=== PATIENT | female | born 1950 | race Caucasian/White ===

== ENCOUNTER 2020-05-11 16:16 | Inpatient (IN) ==
[2020-05-11] MEDS ORDERED: PANTOPRAZOLE BOLUS/DRIP 1 EA IV STA (16:32)
[2020-05-11] MEDS ORDERED: ONDANSETRON INJ 2 MG/ML 2 ML VIAL IV STA (16:32)
--- NOTE | 2020-05-11 16:38 | Emergency Department Note ---
Impression & Plan Weakness, Esophageal varices, GI bleed, Black stool, Heme positive stool ED Provider Note NAME: EDGAR CEE AGE: 69 SEX: F : 1950 ARRIVES VIA: Walk-In INFORMANT: [Patient] ED PROVIDER(S): [Azar Caceres MD] CHIEF COMPLAINT: GI bleed HISTORY OF PRESENT ILLNESS: Patient is a 69-year-old female who presents to the ED with what she thinks is a GI bleed. She has had black stool. The patient was seen in this ED yesterday by me. She had had an episode of he matemesis. Her stool was negative for blood. Her hemoglobin was stable. Her case was discussed with GI and she was felt safe for discharge. She was told to return for any worsening symptoms or black stool. Patient states that she now has black stool. She feels a bit weaker than baseline. She is not short of breath. She has some mild epigastric abdominal pain. No vomiting. No further hematemesis. She has not had fever, chills or cough. The patient does have a history of esophageal varices, she had a banding procedure done about a month ago. REVIEW OF SYSTEMS: See HPI for pertinent positives and negatives. A total of ten systems were reviewed and were otherwise negative. PMHx/PSHx: See Below SOCIAL HISTORY: See Below. PHYSICAL EXAM: GENERAL: Patient is in no acute distress. HEENT: No acute trauma, normocephalic atraumatic, mucous membranes moist, no nasal congestion, very mild scleral icterus. NECK: No stridor, no adenopathy, no meningismus, trachea is midline. LUNGS: Clear to auscultation bilaterally, no wheeze, no rhonchi, breath sounds equal. HEART: 2/6 systolic murmur, regular rate and rhythm. ABDOMEN: Soft, very mildly tender in the epigastrium and right upper quadrant, bowel sounds positive, no hernias, no peritonitis. EXTREMITIES: No cyanosis or edema, full range of motion of all the joints without pain or difficulty, no signs for acute trauma. NEUROLOGIC: Oriented x 3, no acute motor or sensory deficits, no focal weakness. SKIN: No rash, mild jaundice, no diaphoresis. Rectal: Black stool, heme positive. DIFFERENTIAL DIAGNOSIS: Diverticulosis, AVM, coagulopathy, colitis, inflammatory bowel disease, malignancy, Janna-Newman tear, esophagitis, peptic ulcer disease, variceal bleed, gastritis, epistaxis, fissure, hemorrhoids, as well as other pathologies. EMERGENCY DEPARTMENT COURSE/PROCEDURES: ECG: Indication was GI bleeding. The ECG shows a normal sinus rhythm with a rate of 77. The QTc was 457. There was no ST elevation, no PVCs. Continuous Cardiac Monitoring: An order was placed for continuous cardiac monitoring. The monitor shows a rate of 80 with normal sinus rhythm. MEDICAL DECISION MAKING: White count is slightly low. Platelet count is low. The low platelet count is likely secondary to her liver disease. Hemoglobin was down about 1.5 points compared to yesterday. The value today was 10.7. There was no coagulopathy. No significant electrolyte abnormality or kidney failure. Bilirubin was slightly elevated at 2.3, likely consistent with her liver disease. Pancreatic testing was unremarkable. ECG showed a normal sinus rhythm, no acute ischemia. Cardiac enzyme testing x1 was not consistent with acute cardiac injury. Rectal exam showed black stool which was heme positive. The patient presents with black stool. She was seen here yesterday for some hematemesis. Things progressed today to the point where she is having black, heme positive stool. Hemoglobin has dropped 1.5 points. I discussed the case with GI, hospitalization is warranted. She will likely undergo endoscopy tomorrow. The patient is aware of her findings, case management has been involved. I did speak with the on-call hospitalist. At this point, an emergent blood transfusion is not necessary. The patient was given IV saline, 500 cc. She was given a Protonix bolus IV and then was placed on a Protonix drip. She received IV Zofran for nausea. Past Med/Surg History Medical History (Updated 05/11/20 @ 16:48 by Azar Caceres MD) Cardiac murmur Diabetes mellitus, type 2 Esophageal varices banded before Fatty liver History of kidney stones Nausea and vomiting after administration of anesthetic agent severe nausea/vomiting with last EGD 03/11/2020 Osteoarthritis Surgical History History of appendectomy History of cholecystectomy History of colonoscopy with polypectomy History of dilatation and curettage History of esophagogastroduodenoscopy (EGD) last 03/11/2020 and 12/15/19 [facility] History of hysterectomy Family History Father No family history of adverse response to anesthesia Grandmother (Paternal) No family history of adverse response to anesthesia Family/Other No family history of adverse response to anesthesia cousins Other Family history of diabetes mellitus Social History Smoking Status: Never smoker Second Hand Exposure: Yes (parents smoked); Hx Alcohol Use: No Hx Substance Use: No Preferred Language: Venezuelan Communication Ability: Effective Training Systems Officer Required: No Beliefs That Will Affect Care: None Current Living Situation: Spouse Feels Safe at Home: Yes Assistive Devices: Glasses Allergies Allergies Allergy/AdvReac Type Severity Reaction Status Date / Time metformin Allergy Mild Nausea Verified 05/11/20 17:08 pollen extracts Allergy Mild Sneezing Verified 05/11/20 17:08 Home Meds Home Medications Medication Instructions Recorded Confirmed omeprazole 20 mg PO BID 12/12/19 05/11/20 propranolol 10 mg PO BID 12/12/19 05/11/20 Ozempic 1 mg SUBCUT WK 03/04/20 05/11/20 ondansetron HCl [Zofran] 4 mg PO Q6H PRN 05/11/20 05/11/20 Results & Data (ED) Vital Signs Vital Signs - 24 hr 05/11/20 16:21 05/11/20 18:07 Temperature 36.5 C Temperature Source Oral Pulse Rate 79 Pulse Rate [Apical] 75 Pulse Rhythm Regular Respiratory Rate 18 18 Respiratory Effort / Characteristics Non-Labored Respiratory Depth Normal Respiratory Pattern Regular Blood Pressure 118/69 Blood Pressure [Right Arm] 136/72 Blood Pressure Mean 85 Blood Pressure Mean [Right Arm] 93 Blood Pressure Position Sitting Pulse Oximetry 98 98 Oxygen Delivery Method Room Air Room Air Sepsis Recent Fever Within 48 Hours No Sepsis New/Unexplained Change in Mental Status No Sepsis Action Taken by Nursing No Action Required Home Medications Current Medication List: was personally reviewed by me Laboratory Data Attestation: I reviewed the patient's lab results. Result diagrams: 05/11/20 16:52 05/11/20 16:52 Lab Results 05/11/20 05/11/20 05/11/20 Range/Units 16:52 16:52 16:52 WBC 4.70 L (4.8-10.8) K/uL RBC 3.48 L (4.2-5.4) M/uL Hgb 10.7 L (12.0-16.0) g/dL Hct 32.2 L (37-47) % MCV 92.5 (80-100) fL MCH 30.7 (25-34) pg MCHC 33.2 (32-36) g/dL RDW Std Deviation 51.7 H (36.4-46.3) fL RDW Coeff of Coleen 15.4 H (11.5-14.5) % Plt Count 79 L (130-400) K/uL MPV 9.9 (7.4-10.4) fL Immature Gran % (Auto) 0.2 % Neut % (Auto) 52.8 % Lymph % (Auto) 38.7 % Calloway % (Auto) 4.5 % Eos % (Auto) 3.4 % Baso % (Auto) 0.4 % Neut # (Auto) 2.48 (1.4-6.5) K/uL Lymph # (Auto) 1.82 (1.2-3.4) K/uL Calloway # (Auto) 0.21 (0.11-0.59) K/uL Eos # (Auto) 0.16 (0-0.5) K/uL Baso # (Auto) 0.02 (0-0.2) K/uL Immature Gran # (Auto) 0.01 (0.00-0.02) K/uL Platelet Estimate Decreased L (Normal) PT 11.4 (9.0-12.0) Seconds INR 1.1 (0.9-1.1) APTT 23.4 (21.0-31.0) Seconds PTT Ratio 0.8 Sodium (136-145) mmol/L Potassium (3.5-5.1) mmol/L Chloride (98-107) mmol/L Carbon Dioxide (21-32) mmol/L Anion Gap (3-11) BUN (7-18) mg/dl Creatinine (0.6-1.2) mg/dl Est Cr Clr Drug Dosing ml/min Est GFR ( Amer) Est GFR (Non-Af Amer) BUN/Creatinine Ratio (10-20) Glucose (70-99) mg/dl Calcium (8.5-10.1) mg/dl Total Bilirubin (0.2-1) mg/dl AST (15-37) U/L ALT (12-78) U/L Alkaline Phosphatase (45-117) U/L Troponin I (0-0.045) ng/ml Total Protein (6.4-8.2) gm/dl Albumin (3.4-5.0) gm/dl Globulin (2.5-4.0) gm/dl Albumin/Globulin Ratio (0.9-2) Lipase (73-393) U/L Blood Type A Positive Antibody Screen NEGATIVE 05/11/20 Range/Units 16:52 WBC (4.8-10.8) K/uL RBC (4.2-5.4) M/uL Hgb (12.0-16.0) g/dL Hct (37-47) % MCV (80-100) fL MCH (25-34) pg MCHC (32-36) g/dL RDW Std Deviation (36.4-46.3) fL RDW Coeff of Coleen (11.5-14.5) % Plt Count (130-400) K/uL MPV (7.4-10.4) fL Immature Gran % (Auto) % Neut % (Auto) % Lymph % (Auto) % Calloway % (Auto) % Eos % (Auto) % Baso % (Auto) % Neut # (Auto) (1.4-6.5) K/uL Lymph # (Auto) (1.2-3.4) K/uL Calloway # (Auto) (0.11-0.59) K/uL Eos # (Auto) (0-0.5) K/uL Baso # (Auto) (0-0.2) K/uL Immature Gran # (Auto) (0.00-0.02) K/uL Platelet Estimate (Normal) PT (9.0-12.0) Seconds INR (0.9-1.1) APTT (21.0-31.0) Seconds PTT Ratio Sodium 141 (136-145) mmol/L Potassium 3.7 (3.5-5.1) mmol/L Chloride 113 H (98-107) mmol/L Carbon Dioxide 23 (21-32) mmol/L Anion Gap 5.0 (3-11) BUN 20 H (7-18) mg/dl Creatinine 0.85 (0.6-1.2) mg/dl Est Cr Clr Drug Dosing 56.7 ml/min Est GFR ( Amer) 81.6 Est GFR (Non-Af Amer) 70.4 BUN/Creatinine Ratio 23.7 H (10-20) Glucose 118 H (70-99) mg/dl Calcium 8.6 (8.5-10.1) mg/dl Total Bilirubin 2.3 H (0.2-1) mg/dl AST 28 (15-37) U/L ALT 34 (12-78) U/L Alkaline Phosphatase 100 (45-117) U/L Troponin I < 0.015 (0-0.045) ng/ml Total Protein 7.1 (6.4-8.2) gm/dl Albumin 3.3 L (3.4-5.0) gm/dl Globulin 3.8 (2.5-4.0) gm/dl Albumin/Globulin Ratio 0.9 (0.9-2) Lipase 69 L (73-393) U/L Blood Type Antibody Screen Administered Medications Pantoprazole Sodium 40 mg/ (Dextrose) 100 mls @ 20 mls/hr IV Q5H JEN Stop: 06/10/20 16:44 Last Admin: 05/11/20 17:22 Dose: 8 mg/hr, 20 mls/hr Documented by: [id number] Discontinued Medications Sodium Chloride (Nss) 500 mls @ 999 mls/hr IV .Q31M JEN Stop: 05/11/20 17:15 Last Infusion: 05/11/20 18:09 Dose: 0 mls/hr Documented by: [id number] Admin: 05/11/20 17:07 Dose: 999 mls/hr Documented by: [id number] Pantoprazole Sodium (Protonix Bolus/Drip) 0 mls @ 1 mls/hr IV ONE STA Stop: 05/11/20 16:33 Last Admin: 05/11/20 17:07 Dose: 1 mls/hr Documented by: [id number] Pantoprazole Sodium 80 mg/ (Dextrose) 120 mls @ 480 mls/hr IV ONE ONE Stop: 05/11/20 16:59 Last Infusion: 05/11/20 17:22 Dose: 0 mls/hr Documented by: [id number] Admin: 05/11/20 17:07 Dose: 480 mls/hr Documented by: [id number] Ondansetron HCl (Ondansetron Inj 2 Mg/Ml 2 Ml Vial) 4 mg IV ONE STA Stop: 05/11/20 16:33 Last Admin: 05/11/20 17:07 Dose: 4 mg Documented by: [id number] Discharge Plan Visit Data Chief Complaint: GI Bleed Stated Complaint: spit up black blood, here last night ED Provider: Azar Caceres Discharge Problem: Weakness, Esophageal varices, GI bleed, Black stool, Heme positive stool Patient Disposition: Admitted As Inpatient Condition: Good Forms Stand Alone Forms: [facility] Prescriptions Prescriptions: No Action Ozempic 1 mg/dose (2 mg/1.5 mL) Pen Injector 1 mg SUBCUT WK RF: 0 propranolol 10 mg Tablet 10 mg PO BID RF: 0 omeprazole 20 mg Tablet,Delayed Release (Dr/Ec) 20 mg PO BID RF: 0 ondansetron HCl [Zofran] 4 mg tablet 4 mg PO Q6H PRN (Reason: Nausea And Vomiting) RF: 0 Referrals Referrals: Tori Browne DO [Primary Care Provider] - Discharge Problem: Esophageal varices Qualifiers: Esophageal varices type: secondary Esophageal varices bleeding: with bleeding Qualified Code(s): I85.11 - Secondary esophageal varices with bleeding GI bleed Qualifiers: GI bleed type/associated pathology: unspecified gastrointestinal hemorrhage type Qualified Code(s): K92.2 - Gastrointestinal hemorrhage, unspecified
[2020-05-11] MEDS ORDERED: PANTOprazole 80 MG in DEXTROSE 5% 100 ML IV ONE (16:45)
[2020-05-11] MEDS ORDERED: SODIUM CHLORIDE 0.9% 500 ML IV SCH (16:45)
[2020-05-11] MEDS ORDERED: PANTOprazole 80 MG in DEXTROSE 5% 100 ML IV SCH (16:45)
[2020-05-11 17:04] LABS: Hematocrit (blood only) 32.2 % (37-47); Hemoglobin 10.7 g/dL (12.0-16.0); Mean Corpuscular Hemoglobin 30.7 pg (25-34); Mean Corpuscular Hgb Conc 33.2 g/dL (32-36); Mean Corpuscular Volume 92.5 fL (80-100); RDW Coefficient of Variation 15.4 % (11.5-14.5); RDW Standard Deviation 51.7 fL (36.4-46.3); Red Blood Count 3.48 M/uL (4.2-5.4)
[2020-05-11 17:17] LABS: INR 1.1 (0.9-1.1); Partial Thromboplastin Ratio 0.8; Partial Thromboplastin Time 23.4 Seconds (21.0-31.0); Prothrombin Time 11.4 Seconds (9.0-12.0)
[2020-05-11 17:22] LABS: Mean Platelet Volume 9.9 fL (7.4-10.4); Platelet Count 79 K/uL (130-400)
[2020-05-11] MEDS: PANTOprazole 40 MG in DEXTROSE 5% 100 ML IV SCH ×2 (17:22→20:38)
[2020-05-11 17:23] LABS: Alanine Aminotransferase 34 U/L (12-78); Albumin Level 3.3 gm/dl (3.4-5.0); Aspartate Aminotransferase 28 U/L (15-37); BUN Creatinine Ratio 23.7 (10-20); Basophils # (auto) 0.02 K/uL (0-0.2); Basophils % (auto) 0.4 %; Blood Urea Nitrogen 20 mg/dl (7-18); Calcium 8.6 mg/dl (8.5-10.1); Carbon Dioxide 23 mmol/L (21-32); Chloride 113 mmol/L (98-107); Creatinine Clr Calc Pharmacy 56.7 ml/min; Eosinophils # (auto) 0.16 K/uL (0-0.5); Eosinophils % (auto) 3.4 %; Est GFR (African American) 81.6; Est GFR (Non-African American) 70.4; Glucose 118 mg/dl (70-99); Immature Granulocytes # (auto) 0.01 K/uL (0.00-0.02); Immature Granulocytes % (auto) 0.2 %; Lipase 69 U/L (73-393); Lymphocytes # (auto) 1.82 K/uL (1.2-3.4); Lymphocytes % (auto) 38.7 %; Monocytes # (auto) 0.21 K/uL (0.11-0.59); Monocytes % (auto) 4.5 %; Neutrophils # (auto) 2.48 K/uL (1.4-6.5); Neutrophils % (auto) 52.8 %; Platelet Estimate Decreased (Normal); Potassium 3.7 mmol/L (3.5-5.1); Sodium 141 mmol/L (136-145)
[2020-05-11 17:28] LABS: Albumin Globulin Ratio 0.9 (0.9-2); Alkaline Phosphatase 100 U/L (45-117); Bilirubin,Total 2.3 mg/dl (0.2-1); Globulin 3.8 gm/dl (2.5-4.0); Total Protein 7.1 gm/dl (6.4-8.2); Troponin I < 0.015 ng/ml (0-0.045)
--- NOTE | 2020-05-11 18:35 | History & Physical Report ---
Date of Service May 11, 2020 Assessment & Plan (1) Esophageal varices: Recently banded, unclear if current UGI bleed from varices. Hgb relatively stable. Discussed with Dr Kimbrough - clear liquid diet ok, planning on EGD tomorrow afternoon, NPO from 10am. IV Pantoprazole bolus and drip, Octreotide, Ceftriaxone for antibiotic prophylaxis. Continue propranolol 10mg PO BID with hold parameters. Serial H&H. (2) Acute blood loss anemia: As above (3) Heme positive stool: As above (4) Hematemesis: Appears to have now stopped. Currently having more melena. Ondansetron PRN for nausea or vomiting. (5) Liver cirrhosis: (6) Thrombocytopenia: Suspect secondary to liver cirrhosis as above (7) Cardiac murmur: No prior echo on [employer] Previously known. No further workup needed at this stage. (8) Diabetes mellitus, type 2: HbA1C with AM labs. Hold Ozempic BSG ACHS. Insulin for correction only. (9) DVT prophylaxis: SCDs. Chemical prophylaxis contraindicated. Admission and Anticipated Discharge Date Admission Date: 05/11/2020 History of Present Illness Chief Complaint: Melena Primary Care Provider: DO Maddison Ramirezriki Benites is a 69 year old female with liver cirrhosis and history of esophageal varices who presents to the ER with melanic stools. She was seen in the ER the yesterday due to hematemesis. Hemoglobin was at baseline at that time and her care was discussed with Dr Kimbrough her stump blower and felt it was safe for her to be discharged at that time. Since yesterday she started having black stool and feels weaker than usual. No dizziness, lightheadedness, chest pain or shortness of breath. No further nausea, vomiting or hematemesis. She has a history of esophageal varices requiring banding the last time was performed at the beginning of April per patient recollection. In the ER she had heme positive stools, hemoglobin decreased from 12.1 yesterday to 10.7 today. She was started on pantoprazole IV bolus and drip and medicine consulted for the GI bleed, black stool, esophageal varices for admission. Allergies Allergy/AdvReac Type Severity Reaction Status Date / Time metformin Allergy Mild Nausea Verified 05/11/20 17:08 pollen extracts Allergy Mild Sneezing Verified 05/11/20 17:08 Home Medications Home Medications Medication Instructions Recorded Confirmed Type omeprazole 20 mg PO BID 12/12/19 05/11/20 History propranolol 10 mg PO BID 12/12/19 05/11/20 History Ozempic 1 mg SUBCUT WK 03/04/20 05/11/20 History ondansetron HCl [Zofran] 4 mg PO Q6H PRN 05/11/20 05/11/20 History Past Med/Surg History Medical History Cardiac murmur Diabetes mellitus, type 2 Esophageal varices banded before Fatty liver History of kidney stones Nausea and vomiting after administration of anesthetic agent severe nausea/vomiting with last EGD 03/11/2020 Osteoarthritis Surgical History History of appendectomy History of cholecystectomy History of colonoscopy with polypectomy History of dilatation and curettage History of esophagogastroduodenoscopy (EGD) last 03/11/2020 and 12/15/19 [facility] History of hysterectomy Family History Father No family history of adverse response to anesthesia Grandmother (Paternal) No family history of adverse response to anesthesia Family/Other No family history of adverse response to anesthesia cousins Other Family history of diabetes mellitus Social History Smoking Status: Never smoker Second Hand Exposure: Yes (parents smoked); Hx Alcohol Use: No Hx Substance Use: No Preferred Language: Czech Communication Ability: Effective 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 Beliefs That Will Affect Care: None Current Living Situation: Spouse Feels Safe at Home: Yes Safety Concerns: Feels Safe At This Time Assistive Devices: None Review of Systems Review of Systems: All systems reviewed & are unremarkable except as noted in HPI & below Physical Exam Constitutional: WD/WN, vitals as above Eyes: + anicteric sclerae; no conjunctival abnormality and normal pupil size ENMT: external ear and nose normal, oropharynx normal Respiratory: normal respiratory effort, lungs clear to auscultation Cardiovascular: Rate/Rhythm: regular rate and regular rhythm Heart Sounds: + murmur (RUSB ejection systolic 4/6) Extremities: normal capillary refill; no calf tenderness and no pedal edema Gastrointestinal (Abdomen): Inspection/Auscultation: + abdomen distended and normal bowel sounds Percussion/Palpation: + abdomen tender (epigastric, RUQ), abdomen soft and + hepatosplenomegaly; no guarding and abdomen not rigid Skin: no rashes, warm and dry Neurologic: moves all extremities and awake; not confused Motor/Sensory: no asterixis Psychiatric: A+Ox3, euthymic affect Results & Data Results & Data ([facility]) Vital Signs (Past 12 Hours) Vital Signs Temp Pulse Pulse Resp BP BP Pulse Ox 05/11/20 18:07 75 18 136/72 98 05/11/20 16:21 36.5 C 79 18 118/69 98 ECG Indication: other (GI bleed) Rate (beats per minute): 77 Rhythm: normal sinus Findings: no acute ischemic change Comparison ECG Date: from (May 10, 2020) Change: no significant change Code Status & VTE Plan VTE Prophylaxis Plan VTE Prophylaxis will be ordered: Yes PG Care Time/CCT Total # of Minutes Spent Total Time Spent with Patient: Total time spent is greater than 50% in coordination of care (as documented) at patient's floor/unit and/or counseling patient: Coding Level of Care Code 68066 Initial Inpt Care Lvl 2 Diagnoses Esophageal varices I85.11 Esophageal varices bleeding: with bleeding Esophageal varices type: secondary Acute blood loss anemia D62 Heme positive stool R19.5 Hematemesis K92.0 Nausea presence: with nausea Liver cirrhosis K74.60 Thrombocytopenia D69.6 Cardiac murmur R01.1 Diabetes mellitus, type 2 E11.9 DVT prophylaxis Z29.9 (1) Esophageal varices Esophageal varices bleeding: with bleeding Esophageal varices type: secondary Qualified Code(s): I85.11 - Secondary esophageal varices with bleeding (2) Hematemesis Nausea presence: with nausea Qualified Code(s): K92.0 - Hematemesis
[2020-05-11] MEDS ORDERED: GLUCAGON FOR INJ 1 MG VIAL SQ PRN (19:59)
[2020-05-11] MEDS ORDERED: ACETAMINOPHEN 325 MG TAB PO PRN (19:59)
[2020-05-11] MEDS ORDERED: GLUCOSE 10 TABS/TUBE PO PRN (19:59)
[2020-05-11] MEDS ORDERED: CARBOHYDRATES FOR HYPOGLYCEMIA PO PRN (19:59)
[2020-05-11] MEDS ORDERED: ONDANSETRON INJ 2 MG/ML 2 ML VIAL IV PRN (19:59)
[2020-05-11] MEDS ORDERED: DEXTROSE 50% 50 ML SYRINGE IV PRN (19:59)
[2020-05-11] MEDS ORDERED: GLUCOSE 40% GEL 15 GM TUBE PO PRN (19:59)
[2020-05-11] MEDS ORDERED: OCTREOTIDE ACETATE 50 MCG in SYRINGE 9.5 ML IV STA (20:05)
[2020-05-11] MEDS: cefTRIAXone SODIUM 2,000 MG in DEXTROSE 5% 50 ML IV SCH (20:37)
[2020-05-11] MEDS: OCTREOTIDE ACETATE 500 MCG in 0.9 % SODIUM CHLORIDE 100 ML IV SCH (20:38)
[2020-05-11] MEDS: PROPRANOLOL HCL 10 MG TAB PO SCH (20:38)
[2020-05-11] MEDS ORDERED: INSULIN ASPART 100 UNITS/ML 3 ML PEN SC SCH (21:00)
[2020-05-11 23:06] LABS: Hematocrit (blood only) 30.5 % (37-47); Hemoglobin 9.9 g/dL (12.0-16.0)
[2020-05-12] MEDS: PANTOprazole 40 MG in DEXTROSE 5% 100 ML IV SCH ×5 (01:36→20:19)
[2020-05-12 02:44] LABS: Hematocrit (blood only) 31.4 % (37-47); Hemoglobin 10.3 g/dL (12.0-16.0); Mean Corpuscular Hemoglobin 30.3 pg (25-34); Mean Corpuscular Hgb Conc 32.8 g/dL (32-36); Mean Corpuscular Volume 92.4 fL (80-100); RDW Coefficient of Variation 15.2 % (11.5-14.5); RDW Standard Deviation 51.2 fL (36.4-46.3); White Blood Count 3.79 K/uL (4.8-10.8)
[2020-05-12 02:47] LABS: Mean Platelet Volume 10.1 fL (7.4-10.4); Platelet Count 72 K/uL (130-400)
[2020-05-12 03:00] LABS: BUN Creatinine Ratio 22.8 (10-20); Calcium 8.2 mg/dl (8.5-10.1); Creatinine Clr Calc Pharmacy 65.3 ml/min; Est GFR (African American) 98.1; Est GFR (Non-African American) 84.6; Potassium 3.7 mmol/L (3.5-5.1)
[2020-05-12 03:09] LABS: Basophils # (auto) 0.01 K/uL (0-0.2); Basophils % (auto) 0.3 %; Eosinophils # (auto) 0.14 K/uL (0-0.5); Eosinophils % (auto) 3.7 %; Immature Granulocytes # (auto) 0.01 K/uL (0.00-0.02); Immature Granulocytes % (auto) 0.3 %; Lymphocytes # (auto) 1.95 K/uL (1.2-3.4); Lymphocytes % (auto) 51.5 %; Monocytes # (auto) 0.17 K/uL (0.11-0.59); Monocytes % (auto) 4.5 %; Neutrophils # (auto) 1.51 K/uL (1.4-6.5); Neutrophils % (auto) 39.7 %
[2020-05-12] MEDS: OCTREOTIDE ACETATE 500 MCG in 0.9 % SODIUM CHLORIDE 100 ML IV SCH ×3 (03:47→22:53)
[2020-05-12] MEDS ORDERED: Nursing to Pharmacy Communication SCH ×4 (06:15→11:00)
--- NOTE | 2020-05-12 07:53 | Electrocardiogram Report ---
Test Reason : Blood Pressure : / mmHG Vent. Rate : 077 BPM Atrial Rate : 077 BPM P-R Int : 148 ms QRS Dur : 082 ms QT Int : 404 ms P-R-T Axes : 040 025 068 degrees QTc Int : 457 ms Normal sinus rhythm Normal ECG When compared with ECG of 10-MAY-2020 18:35, No significant change was found Confirmed by Sriram López ([id number]) on 05/12/2020 7:52:28 AM Referred By: REFERRED SELF Confirmed By:Sriram López
[2020-05-12] MEDS: PROPRANOLOL HCL 10 MG TAB PO SCH ×2 (08:14→20:20)
--- NOTE | 2020-05-12 09:40 | Hospitalist Progress Note ---
Date of Service May 12, 2020 Assessment & Plan (1) Esophageal varices: Recently banded on 04-11-20. Contiue IV Pantoprazole, Octreotide, and Cefriaxone for antibiotic prophylaxis. Continue propranolol 10mg BID with hold parameters. Patient seen by Dr. Kimbrough this morning. The patient was felt to be stable today so EGD is now planned for tomorrow. Soft diet provided, and the patient will be NPO after midnight. Possible d/c home tomorrow after EGD. (2) Hematemesis: Hematemesis resolved. (3) Acute blood loss anemia: H&H improved to 10.3 and 31.4. Repeat CBC in AM. (4) Heme positive stool: (5) Thrombocytopenia: Platelets decreased to 72 from 79. Likely secondary to cirrhosis. Continue to monitor. Repeat CBC in AM. (6) Liver cirrhosis: As above. (7) Diabetes mellitus, type 2: Continue BSG ACHS. Insulin for correction only. Hold Ozempic. HgbA1C ordered for AM. (8) DVT prophylaxis: Continue SCDs. Chemical prophylaxis contraindicated in the setting of GI bleed. (9) Cardiac murmur: Stable. No further work-up at this time. Admission and Anticipated Discharge Date Admission Date: May 11, 2020 Subjective 69 year old female admitted for GI bleed. Patient has a hx of esophageal varices and is s/p banding on 04-11-20. She reports developing dark stools which made her believe she had a GI bleed. Patient is scheduled for an EGD later this afternoon with Dr. Kimbrough. She is currently NPO for procedure this afternoon. She denies any nausea or vomiting this morning. She reports she did have nausea overnight. She reports she also had some black stools, but does not feel she has blood in her stool. Patient is anxious for discharge, and would like to go home today after her EGD if possible. Hgb is improved today at 10.3 from 9.9. Hct improved to 31.4 from 30.5. Platelets have dropped to 72 from 79. Patient has a hx of cirrhosis with thrombocytopenia. Review of Systems Constitutional: no fever and no chills Eyes: no worsening vision Ear, Nose, Mouth, Throat: no dizziness Respiratory: no dyspnea Cardiovascular: no chest pain Gastrointestinal: no abdominal pain, no nausea and no vomiting Psychiatric: no confusion Physical Exam Physical Exam: Temp Pulse Resp BP Pulse Ox 36.8 C 70 16 102/65 92 05/12/20 07:36 05/12/20 07:36 05/12/20 07:36 05/12/20 07:36 05/12/20 07:36 Patient is afebrile. Vital signs stable. Constitutional: + overweight; no acute distress ENMT: Ears: no hearing impairment Neck: normal visual inspection Respiratory: normal respiratory effort, lungs clear to auscultation Cardiovascular: Rate/Rhythm: regular rate and regular rhythm Gastrointestinal (Abdomen): Inspection/Auscultation: normal bowel sounds Percussion/Palpation: abdomen soft; abdomen nontender Psychiatric: A+Ox3, euthymic affect Results & Data Results & Data ([facility]) Vital Signs (Past 12 Hours) Vital Signs Temp Pulse Pulse Resp BP BP Pulse Ox 05/12/20 07:36 36.8 C 70 16 102/65 92 05/12/20 04:25 37 C 73 18 99/62 L 95 05/12/20 01:10 EDT 76 05/11/20 23:00 36.8 C 73 18 105/66 95 PG Care Time/CCT Total # of Minutes Spent Total Time Spent with Patient: Total time spent is greater than 50% in coordination of care (as documented) at patient's floor/unit and/or counseling patient: Coding [place] [address] Subseq Hosp Care Lvl 3 Patient Type Established Diagnoses Esophageal varices I85.11 Esophageal varices bleeding: with bleeding Esophageal varices type: secondary Hematemesis K92.0 Nausea presence: with nausea Acute blood loss anemia D62 Heme positive stool R19.5 Thrombocytopenia D69.6 Liver cirrhosis K74.60 Diabetes mellitus, type 2 E11.9 DVT prophylaxis Z29.9 Cardiac murmur R01.1 (1) Esophageal varices Esophageal varices bleeding: with bleeding Esophageal varices type: secondary Qualified Code(s): I85.11 - Secondary esophageal varices with bleeding (2) Hematemesis Nausea presence: with nausea Qualified Code(s): K92.0 - Hematemesis
--- NOTE | 2020-05-12 11:19 | Consultation Report ---
DATE OF CONSULTATION: 05/12/2020 GASTROINTESTINAL CONSULT NOTE REASON FOR EVALUATION: Hematemesis. HISTORY OF PRESENT ILLNESS: The patient is a 69-year-old with cirrhosis. The patient has complication of esophageal varices and is being banded as an outpatient. She was banded about a month ago and had about 2 or 3 bands placed because her varices had been pretty much eradicated previously with prior banding episodes. Two days ago, the patient in the evening noticed a little bit of bright red hematemesis of about a tablespoon of blood, it was bright red and she presented to the Emergency Room where she was stable and not having any pain and her stool was heme negative. It was elected to have her go home and only to return if she had more bleeding and she will be followed as an outpatient. Unfortunately, she had a little bit more bleeding yesterday and was admitted to the hospital overnight. The patient has been started on IV Protonix, octreotide and ceftriaxone prophylactically. Of note is that her blood count actually went up overnight from 9 to 10. She is on propranolol 10 mg b.i.d. as an outpatient for her esophageal varices as well. PAST MEDICAL HISTORY: Remarkable for cirrhosis, diabetes type 2, steatohepatitis. She has a history of kidney stones, osteoarthritis. She has had an appendectomy, cholecystectomy, D and C. MEDICATIONS: Omeprazole, propranolol, Ozempic, and Zofran. ALLERGIES: METFORMIN AND POLLEN. FAMILY HISTORY: Positive for diabetes. SOCIAL HISTORY: The patient does not use alcohol, does not smoke. Lives with her spouse. REVIEW OF SYSTEMS: Positive for a little bit of nausea. The remainder is negative. PHYSICAL EXAMINATION: GENERAL: The patient appears awake, alert, coherent, in no acute distress. VITAL SIGNS: Normal. She is afebrile. ABDOMEN: Shows laparoscopic scars from cholecystectomy, right lower quadrant scar from appendectomy. Abdomen is somewhat distended and I was unable to palpate any internal organs. EXTREMITIES: Showed no clubbing, cyanosis or edema. NEUROLOGIC: Grossly normal. IMPRESSION AND PLAN: The patient has some hematemesis with a history of esophageal varices. She is obviously not bleeding profusely from esophageal varices at this time, so I plan on continuing the IV Protonix and octreotide. Her hemoglobin has actually gone up overnight, so I plan on delaying her endoscopy as it is nonemergent to tomorrow afternoon. If there is no major bleeding problem, she may be able to be discharged after her procedure tomorrow. In the meantime, we will give her a soft diabetic diet today, n.p.o. after midnight with EGD tomorrow afternoon.
[2020-05-12] MEDS ORDERED: INSULIN ASPART 100 UNITS/ML 3 ML PEN SC SCH (12:00)
[2020-05-12] MEDS: INSULIN ASPART 100 UNITS/ML 3 ML PEN SC SCH ×3 (12:09→21:37)
[2020-05-12] MEDS: cefTRIAXone SODIUM 2,000 MG in DEXTROSE 5% 50 ML IV SCH (20:19)
[2020-05-13] MEDS: PANTOprazole 40 MG in DEXTROSE 5% 100 ML IV SCH ×3 (02:06→10:41)
[2020-05-13] MEDS ORDERED: Nursing to Pharmacy Communication SCH (03:45)
[2020-05-13] MEDS: INSULIN ASPART 100 UNITS/ML 3 ML PEN SC SCH ×2 (07:09→12:15)
[2020-05-13 07:24] LABS: Hematocrit (blood only) 29.5 % (37-47); Hemoglobin 9.6 g/dL (12.0-16.0); Mean Corpuscular Hemoglobin 30.2 pg (25-34); Mean Corpuscular Hgb Conc 32.5 g/dL (32-36); Mean Corpuscular Volume 92.8 fL (80-100); RDW Coefficient of Variation 14.9 % (11.5-14.5); RDW Standard Deviation 50.8 fL (36.4-46.3); Red Blood Count 3.18 M/uL (4.2-5.4); White Blood Count 3.07 K/uL (4.8-10.8)
[2020-05-13 07:33] LABS: Mean Platelet Volume 9.9 fL (7.4-10.4); Platelet Count 72 K/uL (130-400)
[2020-05-13] MEDS: PROPRANOLOL HCL 10 MG TAB PO SCH (08:09)
[2020-05-13] MEDS: OCTREOTIDE ACETATE 500 MCG in 0.9 % SODIUM CHLORIDE 100 ML IV SCH (08:23)
--- NOTE | 2020-05-13 08:58 | Gastroenterology Progress Note ---
Date of Service May 13, 2020 Assessment & Plan (1) Liver cirrhosis: (2) Acute blood loss anemia: Patient with history of cirrhosis with esophageal varices that have required banding. Hgb 9.6/Hct 29.5 today. Maintain NPO. Continue protonix. Plan is EGD with Dr. Kimbrough this afternoon. Procedure and risks explained to patient which include but not limited to medication reaction, bleeding, perforation, aspiration, and missed lesions. Verbalizes understanding and is agreeable to proceed. Please refer to supervising physician addendum for further recommendations. Admission and Anticipated Discharge Date Admission Date: May 11, 2020 Subjective Patient alert, oriented, and sitting upright in bed this morning. Very conversant. States she is ready to go home. Reports continued dark stools. Denies bright or dark red blood in stools. Notes intermittent nausea. Denies vomiting, abdominal pain. Currently NPO. Review of Systems Review of Systems: All systems reviewed & are unremarkable except as noted in Subjective Physical Exam Constitutional: WD/WN, vitals as above Eyes: no eyelid abnormality and no conjunctival abnormality ENMT: Ears: no external ear abnormality Nose: no external nose abnormality Neck: normal visual inspection and trachea midline Respiratory: normal respiratory effort; no respiratory distress and no labored breathing Cardiovascular: RRR, no murmur, no edema Gastrointestinal (Abdomen): normal bowel sounds, soft, nontender, no hepatosplenomegaly Musculoskeletal: Extremities: extremities normal to inspection Neurologic: PERRL, EOMI, accommodation nl, no face palsy, no dysarthria Psychiatric: A+Ox3, euthymic affect Lymphatic: no cervical or axillary lymphadenopathy Results & Data ([facility]) Vital Signs (Past 12 Hours) Vital Signs Temp Pulse Pulse Resp BP BP Pulse Ox 05/13/20 07:35 36.7 C 74 18 109/70 95 05/13/20 07:23 71 05/13/20 03:30 36.6 C 73 16 101/49 L 94 05/12/20 23:05 37 C 68 70 18 119/74 95 Laboratory Results - last 24 hr 05/12/20 05/12/20 05/12/20 11:44 16:37 20:30 WBC RBC Hgb Hct MCV MCH MCHC RDW Std Deviation RDW Coeff of Coleen Plt Count MPV POC Glucose 159 H 140 H 144 H Estimat Average Glucose Hemoglobin A1c COVID-19 Eval Order SARS-CoV-2, RNA, NAAT 05/13/20 05/13/20 05/13/20 06:00 06:55 06:55 WBC 3.07 L RBC 3.18 L Hgb 9.6 L Hct 29.5 L MCV 92.8 MCH 30.2 MCHC 32.5 RDW Std Deviation 50.8 H RDW Coeff of Coleen 14.9 H Plt Count 72 L MPV 9.9 POC Glucose 139 H Estimat Average Glucose Pending Hemoglobin A1c Pending COVID-19 Eval Order SARS-CoV-2, RNA, NAAT 05/13/20 05/13/20 08:48 08:48 WBC RBC Hgb Hct MCV MCH MCHC RDW Std Deviation RDW Coeff of Coleen Plt Count MPV POC Glucose Estimat Average Glucose Hemoglobin A1c COVID-19 Eval [facility] SARS-CoV-2, RNA, NAAT Pending
[2020-05-13 09:46] LABS: Estimated Average Glucose 120 mg/dl; Hemoglobin A1C 5.8 % (4.5-5.6)
--- NOTE | 2020-05-13 11:35 | Anesthesiology Consultation ---
Date of Service May 13, 2020 Assessment & Plan (1) Encounter for pre-operative examination: Chart Review Chart Review: Acceptable Risk for Surgery and Patient NOT seen in Pre Admission Testing Consults Requested none History Surgery Operation Date: 05/13/20 16:00 Proposed Procedures p Esophagogastroduodenoscopy Dr Luis E Kimbrough Height/Weight Height: 5 ft 1 in Weight: 69.5 kg Allergies Allergy/AdvReac Type Severity Reaction Status Date / Time metformin Allergy Mild Nausea Verified 05/11/20 17:08 pollen extracts Allergy Mild Sneezing Verified 05/11/20 17:08 Medications Home Medications Medication Instructions Recorded Confirmed Last Taken omeprazole 20 mg PO BID 12/12/19 05/11/20 05/11/20 10:00 propranolol 10 mg PO BID 12/12/19 05/11/20 05/11/20 10:00 Ozempic 1 mg SUBCUT WK 03/04/20 05/11/20 05/05/20 ondansetron HCl [Zofran] 4 mg PO Q6H PRN 05/11/20 05/11/20 Unknown Active Medications Generic Name Dose Route Start Last Admin Trade Name Freq PRN Reason Stop Dose Admin Acetaminophen 650 mg 05/11/20 19:59 05/13/20 11:13 Acetaminophen 325 Mg Tab PO 06/10/20 19:58 650 mg Q4H PRN Administration Pain or Fever Pantoprazole Sodium 40 mg/ 100 mls @ 20 mls/hr 05/11/20 16:45 05/13/20 10:41 Dextrose IV 06/10/20 16:44 8 mg/hr Q5H JEN 20 mls/hr Administration 8 MG/HR Ceftriaxone Sodium 2,000 mg/ 70 mls @ 100 mls/hr 05/11/20 21:00 05/12/20 21:52 Dextrose IV 05/21/20 20:59 Infused Q24H JEN Infusion Protocol Octreotide Acetate 500 mcg/ 105 mls @ 10.5 mls/hr 05/11/20 20:15 05/13/20 08:23 Sodium Chloride IV 06/10/20 20:14 50 mcg/hr .Q10H JEN 10.5 mls/hr Administration 50 MCG/HR Insulin Aspart 0 units 05/12/20 11:30 05/13/20 12:15 Insulin Aspart 100 Units/Ml 3 Ml Pen SC 06/11/20 11:29 Not Given ACHS JEN Propranolol HCl 10 mg 05/11/20 21:00 05/13/20 08:09 Propranolol Hcl 10 Mg Tab PO 06/10/20 20:59 10 mg BID JEN Administration NPO Date Last Intake of Fluids: 05/11/20 Time Last Intake of Fluids: 23:00 Date Last Intake of Solids: 05/11/20 Time Last Intake of Solids: 23:00 Past Medical History Medical History Cardiac murmur Diabetes mellitus, type 2 Esophageal varices banded before Fatty liver History of kidney stones Nausea and vomiting after administration of anesthetic agent severe nausea/vomiting with last EGD 03/11/2020 Osteoarthritis Past Family History Family History Father No family history of adverse response to anesthesia Grandmother (Paternal) No family history of adverse response to anesthesia Family/Other No family history of adverse response to anesthesia cousins Other Family history of diabetes mellitus Past Surgical History Surgical History History of appendectomy History of cholecystectomy History of colonoscopy with polypectomy History of dilatation and curettage History of esophagogastroduodenoscopy (EGD) last 03/11/2020 and 12/15/19 [facility] History of hysterectomy Social History Smoking Status: Never smoker Hx Alcohol Use: No Hx Substance Use: No substance use type: does not use Physical Exam Vital Signs Last Vital Signs Temp 36.8 C 05/13/20 11:30 Pulse 64 05/13/20 11:30 Resp 18 05/13/20 11:30 BP 124/76 05/13/20 11:30 Pulse Ox 92 05/13/20 11:30 Testing Laboratory Results 05/13/20 06:55 05/12/20 02:31 PT 11.4 Seconds (9.0-12.0) 05/11/20 16:52 INR 1.1 (0.9-1.1) 05/11/20 16:52 APTT 23.4 Seconds (21.0-31.0) 05/11/20 16:52 Hemoglobin A1c 5.8 % (4.5-5.6) H 05/13/20 06:55 Blood Type A Positive 05/11/20 16:52 Antibody Screen NEGATIVE 05/11/20 16:52 05/13/20 05/13/20 12:15 06:00 POC Glucose 138 H 139 H
--- NOTE | 2020-05-13 15:24 | History & Physical Report ---
Date of Service May 13, 2020 Assessment & Plan Admission and Anticipated Discharge Date Admission Date: May 11, 2020 History of Present Illness Chief Complaint: Hematemesis Primary Care Provider: Tori Browne DO For EGD Allergies Allergy/AdvReac Type Severity Reaction Status Date / Time metformin Allergy Mild Nausea Verified 05/11/20 17:08 pollen extracts Allergy Mild Sneezing Verified 05/11/20 17:08 Home Medications Home Medications Medication Instructions Recorded Confirmed Type omeprazole 20 mg PO BID 12/12/19 05/11/20 History propranolol 10 mg PO BID 12/12/19 05/11/20 History Ozempic 1 mg SUBCUT WK 03/04/20 05/11/20 History ondansetron HCl [Zofran] 4 mg PO Q6H PRN 05/11/20 05/11/20 History Past Med/Surg History Medical History Cardiac murmur Diabetes mellitus, type 2 Esophageal varices banded before Fatty liver History of kidney stones Nausea and vomiting after administration of anesthetic agent severe nausea/vomiting with last EGD 03/11/2020 Osteoarthritis Surgical History History of appendectomy History of cholecystectomy History of colonoscopy with polypectomy History of dilatation and curettage History of esophagogastroduodenoscopy (EGD) last 03/11/2020 and 12/15/19 [facility] History of hysterectomy Family History Father No family history of adverse response to anesthesia Grandmother (Paternal) No family history of adverse response to anesthesia Family/Other No family history of adverse response to anesthesia cousins Other Family history of diabetes mellitus Social History Smoking Status: Never smoker Second Hand Exposure: Yes (parents smoked); Hx Alcohol Use: No Hx Substance Use: No Preferred Language: Guyanese Communication Ability: Effective 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 Beliefs That Will Affect Care: None Current Living Situation: Spouse Feels Safe at Home: Yes Safety Concerns: Feels Safe At This Time Assistive Devices: None Physical Exam Constitutional: + obese Respiratory: normal respiratory effort Cardiovascular: Rate/Rhythm: regular rate and regular rhythm Gastrointestinal (Abdomen): Percussion/Palpation: abdomen soft Results & Data ([facility]) Vital Signs (Past 12 Hours) Vital Signs Temp Pulse Pulse Resp BP Pulse Ox 05/13/20 15:15 36.8 C 64 18 127/70 94 05/13/20 11:30 36.8 C 64 18 124/76 92 05/13/20 07:35 36.7 C 74 18 109/70 95 05/13/20 07:23 71 05/13/20 03:30 36.6 C 73 16 101/49 L 94 Code Status & VTE Plan VTE Prophylaxis Plan VTE Prophylaxis will be ordered: Yes
[2020-05-13] MEDS ORDERED: SODIUM CHLORIDE 0.9% 1000ML 1,000 ML IV SCH (15:30)
[2020-05-13] MEDS ORDERED: LIDOCAINE HCL 2% 2 ML VIAL/AMP(20MG/ML) INFIL ONE (15:52)
[2020-05-13] MEDS ORDERED: PROPOFOL IV EMULSION 10 MG/ML 20 ML VIAL IV ONE (15:52)
[2020-05-13] MEDS ORDERED: ONDANSETRON INJ 2 MG/ML 2 ML VIAL ONE (15:52)
--- NOTE | 2020-05-13 15:56 | GI REPORT ---
Patient Name: Iman Benites Procedure Date: 05/13/2020 3:23 PM Date of : 1950 Admit Type: Inpatient Age: 69 Gender: Female Attending MD: Luke Kimbrough MD Procedure: Upper GI endoscopy Providers: Luke Kimbrough MD Referring MD: Tori Browne Indications: Hematemesis Medicines: Propofol total dose 140 mg IV, Ondansetron 8 mg IV, Lidocaine 60 mg IV Complications: No immediate complications. Estimated Blood Loss: Estimated blood loss: none. Procedure: Pre-Anesthesia Assessment: - Prior to the procedure, a History and Physical was performed, and patient medications, allergies and sensitivities were reviewed. The patient's tolerance of previous anesthesia was reviewed. - The risks and benefits of the procedure and the sedation options and risks were discussed with the patient. All questions were answered and informed consent was obtained. - Prior to the procedure, a History and Physical was performed, and patient medications, allergies and sensitivities were reviewed. The patient's tolerance of previous anesthesia was reviewed. - The risks and benefits of the procedure and the sedation options and risks were discussed with the patient. All questions were answered and informed consent was obtained. After obtaining informed consent, the endoscope was passed under direct vision. Throughout the procedure, the patient's blood pressure, pulse, and oxygen saturations were monitored continuously. The Endoscope was introduced through the mouth, and advanced to the second part of duodenum. The upper GI endoscopy was accomplished without difficulty. The patient tolerated the procedure well. Findings: The Z-line was variable and was found 35 cm from the incisors. Grade I varices were found in the lower third of the esophagus. A large amount of a phytobezoar was found in the gastric body. The examined duodenum was normal. Impression: - Z-line variable, 35 cm from the incisors. - Grade I esophageal varices. - A large amount of a phytobezoar in the stomach. - Normal examined duodenum. - No specimens collected. Recommendation: - [facility]. - Full liquid diet for 2 weeks. King Mccray MD 05/13/2020 3:55:46 PM This report has been signed electronically. Note Initiated On: 05/13/2020 3:23 PM Number of Addenda: 0 I attest to the content of the Intraoperative Record and orders documented therein, exceptions below {[id number]}
--- NOTE | 2020-05-13 16:18 | Anesthesiology Progress Note ---
Date of Service May 13, 2020 Anesthesia Post Procedure Vital Signs Vital Signs: Temp Pulse Pulse Resp BP BP Pulse Ox 05/13/20 16:03 67 14 120/72 93 05/13/20 15:48 69 12 113/70 95 05/13/20 15:15 36.8 C 64 18 127/70 94 05/13/20 11:30 36.8 C 64 18 124/76 92 05/13/20 07:35 36.7 C 74 18 109/70 95 05/13/20 07:23 71 05/13/20 03:30 36.6 C 73 16 101/49 L 94 05/12/20 23:05 37 C 68 70 18 119/74 95 05/12/20 19:36 36.6 C 70 18 118/74 94 Transfer of Care Handoff Completed per policy Notes Mental Status: alert / awake / arousable and participated in evaluation Patient Amnestic to Procedure: Yes Nausea / Vomiting: adequately controlled Pain: adequately controlled Airway Patency, RR, SpO2: stable & adequate BP & HR: stable & adequate Hydration State: stable & adequate Anesthetic Complications: no major complications apparent
--- NOTE | 2020-05-13 16:54 | Progress Notes ---
DATE: 05/13/2020 The patient underwent an EGD today for her hematemesis. She has a history of esophageal varices that had been banded in the past. Her esophagus actually looked very good. There was only 1 small distal varix, but no signs of active bleeding. In the stomach, there was a large gastric phytobezoar and some antral irritation as a result. The pylorus was widely patent, however, and the duodenum looked normal. I suspect that this is due to diabetic gastroparesis. IMPRESSION: The patient has gastric bezoar. I would recommend that we continue proton pump inhibitor and put her on a liquid diet for 2 weeks and then reassess with an upper gastrointestinal as an outpatient to make sure that it is emptied.
--- NOTE | 2020-05-13 17:05 | Discharge Summary ---
Date of Service date of admission - May 11, 2020 date of discharge - May 13, 2020 Admission HPI Per Admitting Provider Iman Benites is a 69 year old female with liver cirrhosis and history of esophageal varices who presents to the ER with melanic stools. She was seen in the ER the yesterday due to hematemesis. Hemoglobin was at baseline at that time and her care was discussed with Dr Kimbrough her systems architect and felt it was safe for her to be discharged at that time. Since yesterday she started having black stool and feels weaker than usual. No dizziness, lightheadedness, chest pain or shortness of breath. No further nausea, vomiting or hematemesis. She has a history of esophageal varices requiring banding the last time was performed at the beginning of April per patient recollection. In the ER she had heme positive stools, hemoglobin decreased from 12.1 yesterday to 10.7 today. She was started on pantoprazole IV bolus and drip and medicine consulted for the GI bleed, black stool, esophageal varices for admission. Principal Diagnosis gastric bezoar Discharge Exam Constitutional well developed and well nourished; no acute distress and no altered mental status ENMT external ear and nose normal, oropharynx normal Respiratory normal respiratory effort, lungs clear to auscultation Cardiovascular Rate/Rhythm: regular rate and regular rhythm Heart Sounds: normal S1, normal S2 and + murmur Vessels: posterior tibial pulses present and dorsalis pedis pulses present; no JVD Extremities: no edema Gastrointestinal (Abdomen) normal bowel sounds, soft, nontender, no hepatosplenomegaly Skin no rashes, warm and dry Psychiatric A+Ox3, euthymic affect Discharge Data Allergies Allergy/AdvReac Type Severity Reaction Status Date / Time metformin Allergy Mild Nausea Verified 05/11/20 17:08 pollen extracts Allergy Mild Sneezing Verified 05/11/20 17:08 Consultations [facility] - Luke Kimbrough MD Procedures Performed Operation Date: 05/13/20 16:00 Actual Procedures Esophagogastroduodenoscopy - Luke Kimbrough MD Impression: - Z-line variable, 35 cm from the incisors. - Grade I esophageal varices. - A large amount of a phytobezoar in the stomach. - Normal examined duodenum. - No specimens collected. Hospital Course (1) Gastric bezoar: Due to melena stool, report of hematemesis, and heme+ stool the patient was placed on PPI and octreotide drips. Was subsequently seen by [facility] GI. Had mild acute blood loss anemia; presenting hemoglobin was 12.1, falling to 9.6 at discharge. Underwent EGD by Dr Luke Kimbrough. EGD showed non-bleeding esophageal varices along with a large gastric bezoar. Dr Kimbrough thought that the bleeding may have been from the bezoar irritating the gastric mucosa. Dr Kimbrough recommended ongoing use of PPI along with a full liquids diet for 2 weeks post-discharge. Patient will need to f/u with Dr Kimbrough after discharge for additional testing. Bezoar due to poor gastric motility from gastroparesis? other cause? (2) GI bleed: see above in "gastric bezoar" (3) Acute blood loss anemia: mild-moderate. nearly 3-gram drop during the stay. did not require PRBCs. will take once daily ferrous sulfate post-discharge. will remain on PPI. 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 Total Time Total Time Spent Total Time Spent (In Minutes): 35 Total Time Includes: Examination of the Patient, Discharge Planning, Medication Reconciliation and Communication With Other Providers Discharge Plan Discharge Items Patient Disposition: Home - Self-Care Reason For Visit: concern for upper GI bleeding Discharge Diagnosis: large amount of retained food in the stomach; no active bleeding during the endoscopy by Dr Kimbrough Condition on Discharge: Good Activity: As commented below Activity Comment: gradually increase activities as tolerated Non-emergency contact: Primary Care Provider and Clinic Physician Director Call non-emergency contact if: you have any medication questions, your symptoms worsen and you have a fever Follow-up/Referrals: Tori Browne DO [Primary Care Provider] - (see Dr Browne within 1 week ) Luke Kimbrough [Physician] - (see Dr Kimbrough in 2 weeks ) Diet: Full liquid Addtl Attending Provider Instructions: You were admitted to the hospital due to dark/black stools (this is old blood in the stool) along with vomiting of small amount of blood. We had concern for upper gastrointestinal bleeding - potentially from your varices in the esophagus. Dr Kimbrough from [facility] performed upper endoscopy which showed a large amount of retained food in your stomach. There was no active bleeding. It is possible that the retained food irritated the stomach causing your recent bleeding. Dr Kimbrough is recommending a full liquids diet for 2 weeks. Please see handout. Full liquids includes dairy products (cream-based soup, ice cream, etc). Dr Kimbrough is planning to run additional tests on your stomach in 2-3 weeks to determine the cause of the retained food. It is possible that you have a condition called "gastroparesis" but you will need more tests to make that diagnosis. Take thax-fux-fdezkts iron 325mg once daily due to mild anemia. Take with a glass of orange juice. Have Dr Browne repeat your CBC blood count in 1 week to ensure your counts are stable. Know that iron will cause your stools to be dark and cause constipation. Follow-up - see separate section Return to [facility] if - * you have vomiting of any bright red blood or black material * you have worsening abdominal pain * you have persist black stools * you are dizzy or lightheaded consistently * any other concerns Pending Studies at Discharge: No Stand-Alone Forms: My [facility], Smoking Cessation Medications and DC Order Prescriptions: New ferrous sulfate 325 mg (65 mg iron) tablet,delayed release (DR/EC) 325 mg PO DAILY Qty: 30 RF: 2 Continued Ozempic 1 mg/dose (2 mg/1.5 mL) Pen Injector 1 mg SUBCUT WK RF: 0 propranolol 10 mg Tablet 10 mg PO BID RF: 0 omeprazole 20 mg Tablet,Delayed Release (Dr/Ec) 20 mg PO BID RF: 0 ondansetron HCl [Zofran] 4 mg tablet 4 mg PO Q6H PRN (Reason: Nausea And Vomiting) RF: 0 Discharge Orders: Discharge Order (Routine); Ordered 05/13/20 Ordered By: Regulo Iyer/Other Patient Handouts: Full Liquid Diet Dc Admission Data Admit Date/Time: 05/11/20 18:30 Attending Provider: Regulo Christianson Admit Provider: Megha,Regulo M. Primary Care Provider: Tori Browne Other Providers: Regulo [place] ; Luke Kimbrough Other Interventions: Discharge Summary Assessment (RN) Last Done: 05/13/20 16:59 Coding Level of Care Code D/C Day Management >30 mins Diagnoses Gastric bezoar T18.2XXA GI bleed K92.2 GI bleed type/associated pathology: unspecified gastrointestinal hemorrhage type Acute blood loss anemia D62 Hematemesis K92.0 Nausea presence: with nausea Liver cirrhosis K74.60 Esophageal varices I85.11 Esophageal varices bleeding: with bleeding Esophageal varices type: secondary Diabetes mellitus, type 2 E11.9 Pancytopenia D61.818
== END 2020-05-13 17:45 | disposition home or self-care (01) | DRG 394 ==
LOC: ED 16:16 → 2N 18:30 → SUATTDRO 18:30 → 2N 19:07